=== PATIENT | female | born 2000 | race Hispanic/Latino ===

== ENCOUNTER 2025-01-17 10:26 | Outpatient (CLI) | payer OTHER | END 2025-01-17 10:27 | disposition home or self-care (01) | LOC: CSHULT 10:26 | PROVIDERS: ATTEND Family Medicine | DX: O09.292 Supervision of pregnancy with other poor reproductive or obstetric history, second trimester (principal); Z3A.20 20 weeks gestation of pregnancy | CPT/HCPCS: 76805 ==

== ENCOUNTER 2025-05-19 23:17 | Day surgery (SDC) | payer OTHER ==
[2025-05-20 00:20] VITALS: BMI 24.3
[2025-05-20 01:06] LABS: Glucose, Urine (Dipstick) Normal (Negative); Leukocyte Negative (Negative); Protein, Urine (Dipstick) 15 mg/dl (Neg-Trace); Specific Gravity, Urine 1.015 (1.005-1.030)
[2025-05-20] MEDS ORDERED: Acetaminophen 500 MG TAB PO PRN (01:20)
[2025-05-20 01:25] LABS: Fetal Membranes Rupture No Membranes Rupture (No Rupture)
== END 2025-05-20 01:50 | disposition home or self-care (01) ==
LOC: CSHLD/OP 23:17
PROVIDERS: ATTEND Family Medicine
DX: O47.1 False labor at or after 37 completed weeks of gestation (principal); Z3A.38 38 weeks gestation of pregnancy
CPT/HCPCS: 81003; 84112; 99285

== ENCOUNTER 2025-05-27 09:22 | Inpatient (IN) | payer MEDICAID, OTHER ==
[2025-05-27] MEDS ORDERED: Diphenoxylate HCl/Atropine Tablet PO PRN (10:14)
[2025-05-27] MEDS ORDERED: Bicitra 30 ML UDCUP PO PRN (10:14)
[2025-05-27] MEDS ORDERED: Methylergonovine 0.2 MG/ML VIAL IM PRN (10:14)
[2025-05-27] MEDS ORDERED: Oxytocin 30 units/NS 500 ML 500 ML IV SCH (10:14)
[2025-05-27] MEDS ORDERED: Ondansetron PF 4 MG/2 ML Vial IVP PRN ×4 (10:14→15:29)
[2025-05-27] MEDS ORDERED: Famotidine/PF 20 mg/2ml Vial SLOW IVP PRN (10:14)
[2025-05-27] MEDS ORDERED: Carboprost 250 MCG/ML AMP IM PRN (10:14)
[2025-05-27] MEDS ORDERED: Tranexamic Acid 1,000 MG/10 ML VIAL IVP PRN (10:14)
[2025-05-27] MEDS ORDERED: hydrALAZINE 20 MG/ML VIAL SLOW IVP PRN ×2 (10:14→15:29)
[2025-05-27 10:16] VITALS: BMI 26.5
[2025-05-27 10:32] LABS: Hematocrit 35.9 % (34.9-44.5); Hemoglobin 12.2 g/dL (12.0-15.5); Mean Corpuscular Hemoglobin 30.9 pg (27.0-33.0); Mean Corpuscular Volume 90.9 fL (81.6-98.3); Platelet Count 254 10x3/uL (150-450); Red Blood Cell (RBC) Count 3.95 10x6/uL (3.90-5.03); White Blood Cell (WBC) Count 9.34 10x3/uL (3.5-10.5)
[2025-05-27 11:01] LABS: Syphilis Antibody Index 0.07 S/CO (<1.00 Non-Reactive)
[2025-05-27 11:59] LABS: Hep B Surf Ag - L&D Non-Reactive S/CO (NonReactive)
[2025-05-27] MEDS: Oxytocin 10 UNITS/ML VIAL ONE ×2 (13:47)
[2025-05-27] MEDS: PHENYLEPHRINE-NS 100 MCG/ML 10 ML SYRINGE ONE (13:47)
[2025-05-27] MEDS: Ondansetron PF 4 MG/2 ML Vial ONE (13:47)
[2025-05-27] MEDS ORDERED: HYDROmorphone 0.5 MG/0.5 ML SYRINGE SLOW IVP PRN (13:52)
[2025-05-27] MEDS ORDERED: Ketorolac Tromethamine 30 MG (1 mL) VIAL IVP PRN (13:52)
[2025-05-27] MEDS ORDERED: Meperidine HCl/PF 25 MG (1 mL) VIAL SLOW IVP PRN (13:52)
[2025-05-27] MEDS ORDERED: Communication Order-Pharmacy FS SCH (14:00)
[2025-05-27] MEDS: Ketorolac Tromethamine 30 MG (1 mL) VIAL IVP SCH ×2 (14:22→20:07)
[2025-05-27] MEDS ORDERED: Simethicone Chewable 80 MG TAB PO PRN (15:29)
[2025-05-27] MEDS ORDERED: Lanolin Ointment 7 GM TUBE TOP PRN (15:29)
[2025-05-27] MEDS ORDERED: diphenhydrAMINE 25 MG CAP PO PRN (15:29)
[2025-05-27] MEDS ORDERED: Bisacodyl 10 MG SUPP PR PRN (15:29)
[2025-05-27] MEDS: diphenhydrAMINE 50 MG/ML VIAL IVP PRN (17:46)
[2025-05-27] MEDS: Ferrous Sulfate 325 MG TAB PO SCH (21:00)
[2025-05-28] MEDS ORDERED: HYDROcodone/Acetaminophen 5/325 mg Tablet PO PRN (02:01)
[2025-05-28] MEDS ORDERED: Meperidine HCl/PF 25 MG (1 mL) VIAL IM PRN (02:01)
[2025-05-28 04:54] LABS: Hematocrit 32.1 % (34.9-44.5); Hemoglobin 10.9 g/dL (12.0-15.5); Mean Corpuscular Hemoglobin 30.9 pg (27.0-33.0); Mean Corpuscular Volume 90.9 fL (81.6-98.3); Platelet Count 252 10x3/uL (150-450); Red Blood Cell (RBC) Count 3.53 10x6/uL (3.90-5.03); White Blood Cell (WBC) Count 10.48 10x3/uL (3.5-10.5)
[2025-05-28] MEDS: Ibuprofen 800 MG TAB PO SCH (14:04)
[2025-05-29] MEDS: HYDROcodone/Acetaminophen 5/325 mg Tablet PO PRN (08:23)
[2025-05-29 08:33] VITALS: BP 99/59; TEMP 98.4
== END 2025-05-29 14:30 | disposition home or self-care (01) | DRG 788 ==
LOC: CSHLD 09:22 → CSHPP 15:25
PROVIDERS: ADMIT Family Medicine; ATTEND Family Medicine
PROC: 10D00Z1 Extraction of Products of Conception, Low, Open Approach (ICD-10-PCS; principal; 2025-05-27)
PROC: 4A1HXCZ Monitoring of Products of Conception, Cardiac Rate, External Approach (ICD-10-PCS; 2025-05-27)
DX: O34.211 Maternal care for low transverse scar from previous cesarean delivery (principal); Z3A.39 39 weeks gestation of pregnancy; Z79.899 Other long term (current) drug therapy; Z79.82 Long term (current) use of aspirin; Z37.0 Single live birth
CPT/HCPCS: 36415; 51702; 85027; 86780; 86850; 86900; 86901; 87340; J1200; J1885; J2274; J2405; J2550; J2590